=== PATIENT | male | born 1960 | race Caucasian/White ===

== ENCOUNTER → 2016-11-01 | Outpatient (CLI) | payer BC ==
--- NOTE | 2016-11-02 17:50 | EKG ---
Date Performed: 11/01/2016 Time Performed: 13:44:44 PTAGE: 55 years EKG: SINUS BRADYCARDIA BORDERLINE ECG NO PREVIOUS TRACING DOCTOR: Janie Wynne Interpretating Date/Time 11/02/2016 17:48:22
== END ==
LOC: HCAV 13:15
PROVIDERS: ATTEND Surgery Surgery of the Hand
DX: I10 Essential (primary) hypertension (principal); R94.31 Abnormal electrocardiogram [ECG] [EKG]
CPT/HCPCS: 93005